=== PATIENT | female | born 1960 | race American Indian/Alaskan Native ===

== ENCOUNTER 2018-09-22 03:02 | Emergency (ER) | payer OTHER ==
[2018-09-22 03:47] LABS: Basophils % (Auto) 0.8 % (0.0-1.8); Eosinophils # (Auto) 0.1 K/mm3 (0.0-0.4); Eosinophils % (Auto) 2.5 % (0.0-4.3); Hematocrit 38.8 % (30.3-42.9); Hemoglobin 13.2 gm/dl (10.1-14.3); Lymphocytes # (Auto) 1.6 K/mm3 (1.2-5.4); Lymphocytes % (Auto) 38.8 % (13.4-35.0); Mean Corpuscular HGB Conc 34 % (30-34); Mean Corpuscular Volume 83 fl (79-97); Monocytes # (Auto) 0.4 K/mm3 (0.0-0.8); Platelet Count 219 K/mm3 (140-440); Red Blood Count 4.69 M/mm3 (3.65-5.03); Red Cell Distribution Width 14.8 % (13.2-15.2)
--- NOTE | 2018-09-22 03:52 | Emergency Department Report ---
ED General Adult HPI - General Chief complaint: High BP Stated complaint: ELEVATED BLOOD PRESSURE Time Seen by Provider: 09/22/18 03:47 Source: patient Mode of arrival: Ambulatory Limitations: No Limitations - History of Present Illness Initial comments: Patient is 57 years old female with history of hypertension on hydrochlorothiazide. Patient presented today to the emergency room stating that she took her blood pressure today and found it high, 157/99. Patient denied any symptoms. She denied any chest pain, weakness numbness or tingling sensation. Patient also denied any shortness of breath. Patient stated that her blood pressures being well-controlled with her current medication until tonight. Patient is anxious. Severity scale (0 -10): 1 - Related Data Allergies Allergy/AdvReac Type Severity Reaction Status Date / Time No Known Allergies Allergy Unverified 05/29/15 21:22 ED Review of Systems ROS: Stated complaint: ELEVATED BLOOD PRESSURE Other details as noted in HPI Comment: All other systems reviewed and negative Constitutional: denies: chills, fever Respiratory: denies: cough, orthopnea, shortness of breath Cardiovascular: denies: chest pain, palpitations Gastrointestinal: denies: abdominal pain, nausea, vomiting, diarrhea, constipation, hematemesis, melena, hematochezia Musculoskeletal: denies: back pain ED Past Medical Hx - Past Medical History Previous Medical History?: Yes Hx Hypertension: Yes - Surgical History Past Surgical History?: Yes Additional Surgical History: fibroids - Social History Smoking Status: Never Smoker Substance Use Type: None ED Physical Exam - General Limitations: No Limitations General appearance: alert, in no apparent distress - Head Head exam: Present: atraumatic, normocephalic, normal inspection - Eye Eye exam: Present: normal appearance - ENT ENT exam: Present: normal exam, normal orophraynx, mucous membranes moist - Neck Neck exam: Present: normal inspection, full ROM. Absent: tenderness, meningismus, lymphadenopathy, thyromegaly - Respiratory Respiratory exam: Present: normal lung sounds bilaterally - Cardiovascular Cardiovascular Exam: Present: regular rate, normal rhythm, normal heart sounds - GI/Abdominal GI/Abdominal exam: Present: soft, normal bowel sounds. Absent: distended, tenderness, guarding, rebound, rigid, organomegaly, mass, bruit, pulsatile mass, hernia - Extremities Exam Extremities exam: Present: normal inspection, full ROM, normal capillary refill. Absent: pedal edema, calf tenderness - Back Exam Back exam: Present: normal inspection, full ROM. Absent: tenderness, CVA tenderness (R), CVA tenderness (L), muscle spasm, paraspinal tenderness, vertebral tenderness - Neurological Exam Neurological exam: Present: alert, oriented X3, CN II-XII intact, normal gait, reflexes normal - Psychiatric Psychiatric exam: Present: normal mood, anxious - Skin Skin exam: Present: warm, intact, normal color ED Course Vital Signs 09/22/18 09/22/18 03:06 03:59 Temperature 97.9 F Pulse Rate 80 74 Respiratory 16 15 Rate Blood Pressure 154/79 Blood Pressure 148/89 [Right] O2 Sat by Pulse 98 98 Oximetry ED Medical Decision Making - Lab Data Result diagrams: 09/22/18 03:34 Critical care attestation.: If time is entered above; I have spent that time in minutes in the direct care of this critically ill patient, excluding procedure time. ED Disposition Clinical Impression: Hypertension Disposition: DC-01 TO HOME OR SELFCARE Is pt being admited?: No Condition: Stable Instructions: Hypertension (ED) Referrals: CHANDNI ESPINOSA MD [Primary Care Provider] - 3-5 Days
[2018-09-22 04:07] LABS: BUN/Creatinine Ratio 16; Blood Urea Nitrogen 13 mg/dL (7-17); Calcium 9.2 mg/dL (8.4-10.2); Hemolysis Index 25
[2018-09-22 04:26] VITALS: BP 140/79
== END 2018-09-22 04:37 | disposition home or self-care (01) ==
LOC: ED 03:02
DX: I10 Essential (primary) hypertension (principal)
CPT/HCPCS: 36415; 80048; 84484; 85025; 93005; 93010; 99283

== ENCOUNTER 2020-05-13 09:07 | Outpatient (CLI) | payer OTHER ==
--- NOTE | 2020-05-21 14:31 | Mammography Report ---
DIGITAL SCREENING MAMMOGRAM WITH CAD, 05/13/2020 INDICATION: Routine screening mammography. TECHNIQUE: Digital bilateral 2D mammography was obtained in the craniocaudal and mediolateral obliq ue projections. This examination was interpreted with the benefit of Computer-Aided Detection analysi s. COMPARISON: 10/31/2018, 04/18/2018 FINDINGS: Breast Density: There are scattered areas of fibroglandular density. There is no evidence of dominant mass, suspicious calcifications or architectural distortion in eithe r breast. There have been no significant interval changes. IMPRESSION: No mammographic evidence of malignancy or significant interval changes. Follow up recommendation: Routine yearly BI-RADS Category 1: Negative. A "normal" or negative report should not discourage follow up or biopsy of a clinically significant f inding. A written summary of these findings will be mailed to the patient. The patient will be entered into a mammography reporting system which will generate a reminder letter for the patient's next appointmen t at the appropriate interval. The [employer] recommends yearly mammograms starting at age 40 and continuing as l issa as a woman is in good health. Breast MRI is recommended for women with an approximate 20-25% or greater lifetime risk of breast cancer, including women with a strong family history of breast or ova juanito cancer or who have been treated for Hodgkin's disease. Signer Name: Edgard Rojas MD Signed: 05/21/2020 2:26 PM Workstation Name: [id number]
== END 2020-05-13 09:08 | disposition home or self-care (01) ==
LOC: MAMMO 09:07
PROVIDERS: ATTEND Family Medicine
DX: Z12.31 Encounter for screening mammogram for malignant neoplasm of breast (principal)
CPT/HCPCS: 77067

== ENCOUNTER 2020-08-15 21:15 | Emergency (ER) | payer SELFPAY ==
--- NOTE | 2020-08-15 23:44 | Emergency Department Report ---
ED General Adult HPI - General Chief complaint: High BP Stated complaint: HIGH BP Source: patient Mode of arrival: Ambulatory Limitations: No Limitations - History of Present Illness Initial comments: Patient is a 59-year-old -[place]ag[place] female with a history of hypertension who presents to the ED for evaluation after she noticed that her blood pressure was significantly elevated in the last 2 days despite taking her blood pressure medication Triamterene consistently over the last 2 years. Patient states that she usually checks her blood pressure at home and in the last 2 days, the systolic blood pressure has been in the 160s to 170s when checked at home, and prior to arrival in the ED it was also in the 160s systolic. Patient states that in the last 3 hours, the systolic blood pressure has been ranging from 160s to 170s and back to 150s. Patient denies headache, chest pain, shortness of breath, abdominal pain, diaphoresis, neck pain, change in vision, palpitations, syncope, numbness and tingling or weakness of upper and lower extremities bilaterally, nausea and vomiting, diarrhea, cough or fever and chills. MD Complaint: Elevated BP -: Sudden, days(s) (2) Location: head Severity scale (0 -10): 0 Consistency: intermittent Improves with: none Worsens with: none Associated Symptoms: denies other symptoms. denies: confusion, chest pain, cough, diaphoresis, fever/chills, headaches, loss of appetite, malaise, nausea/vomiting, rash, shortness of breath, syncope, weakness Treatments Prior to Arrival: none - Related Data Previous Rx's Medication Instructions Recorded Last Taken Type amLODIPine 5 mg PO DAILY #30 tab 08/15/20 Unknown Rx hydrOXYzine PAMOATE [Vistaril] 25 mg PO QHS PRN #30 capsule 08/15/20 Unknown Rx Allergies Allergy/AdvReac Type Severity Reaction Status Date / Time No Known Allergies Allergy Unverified 05/29/15 21:22 ED Review of Systems ROS: Stated complaint: HIGH BP Other details as noted in HPI Constitutional: denies: chills, fever Eyes: denies: eye pain, eye discharge, vision change ENT: denies: ear pain, throat pain Respiratory: denies: cough, shortness of breath, wheezing Cardiovascular: denies: chest pain, palpitations Endocrine: no symptoms reported Gastrointestinal: denies: abdominal pain, nausea, diarrhea Genitourinary: denies: urgency, dysuria, discharge Musculoskeletal: denies: back pain, joint swelling, arthralgia Skin: denies: rash, lesions Neurological: denies: headache, weakness, paresthesias Psychiatric: denies: anxiety, depression Hematological/Lymphatic: denies: easy bleeding, easy bruising ED Past Medical Hx - Past Medical History Previous Medical History?: Yes Hx Hypertension: Yes - Surgical History Past Surgical History?: Yes Additional Surgical History: fibroids - Social History Smoking Status: Never Smoker Substance Use Type: None - Medications Home Medications: Home Medications Medication Instructions Recorded Confirmed Last Taken Type amLODIPine 5 mg PO DAILY #30 tab 08/15/20 Unknown Rx hydrOXYzine PAMOATE [Vistaril] 25 mg PO QHS PRN #30 capsule 08/15/20 Unknown Rx ED Physical Exam - General Limitations: No Limitations General appearance: alert, in no apparent distress - Head Head exam: Present: atraumatic, normocephalic, normal inspection - Eye Eye exam: Present: normal appearance, PERRL, EOMI Pupils: Present: normal accommodation - ENT ENT exam: Present: normal exam, normal orophraynx, mucous membranes moist, TM's normal bilaterally, normal external ear exam - Neck Neck exam: Present: normal inspection - Respiratory Respiratory exam: Present: normal lung sounds bilaterally. Absent: respiratory distress, wheezes, rales, rhonchi, stridor, chest wall tenderness, accessory muscle use, decreased breath sounds, prolonged expiratory - Cardiovascular Cardiovascular Exam: Present: regular rate, normal rhythm, normal heart sounds. Absent: systolic murmur, diastolic murmur, rubs, gallop - GI/Abdominal GI/Abdominal exam: Present: soft, normal bowel sounds. Absent: tenderness, guarding, hyperactive bowel sounds, hypoactive bowel sounds, organomegaly, mass - Extremities Exam Extremities exam: Present: normal inspection, full ROM, normal capillary refill - Back Exam Back exam: Present: normal inspection, full ROM. Absent: tenderness, CVA tenderness (R), CVA tenderness (L), muscle spasm, paraspinal tenderness, vertebral tenderness - Neurological Exam Neurological exam: Present: alert, oriented X3, CN II-XII intact, normal gait, reflexes normal - Psychiatric Psychiatric exam: Present: normal affect, normal mood - Skin Skin exam: Present: warm, dry, intact, normal color. Absent: rash ED Course Vital Signs 08/15/20 08/16/20 23:06 00:45 Temperature 98.6 F Pulse Rate 74 78 Respiratory 18 Rate Blood Pressure 166/62 Blood Pressure 152/84 [Left] O2 Sat by Pulse 100 Oximetry ED Medical Decision Making - Medical Decision Making This is a 59-year-old -[place]ag[place] female with a history of hypertension who presents to the ED for evaluation after she noticed that her blood pressure was significantly elevated in the last 2 days despite taking her blood pressure medication Triamterene consistently over the last 2 years. Patient states that she usually checks her blood pressure at home and in the last 2 days, the systolic blood pressure has been in the 160s to 170s when checked at home, and prior to arrival in the ED it was also in the 160s systolic. Patient states that in the last 3 hours, the systolic blood pressure has been ranging from 160s to 170s and back to 150s. In the ED, patient is alert and oriented x3 and is not in distress with initial blood pressure in triage reading 166/62, and with normal temperature and pulse, and oxygen saturation of 100% in room air. Laine perkins appears to be not acute distress but anxious in triage. On reevaluation, patient's blood pressure reading was 152/84 with a pulse rate of 78 bpm and oxygen saturation of 100% in room air. Patient was discharged home with additional prescription of amlodipine 5 mg to be taken daily in addition to triamterene that she has been taking. Patient was advised to follow-up with her primary care physician in 3 to 5 days for reevaluation and also advised return to the ED immediately if her symptoms get worse. - Differential Diagnosis Uncontrolled HTN; Anxiety Critical care attestation.: If time is entered above; I have spent that time in minutes in the direct care of this critically ill patient, excluding procedure time. ED Disposition Clinical Impression: Uncontrolled stage 2 hypertension, Anxiety as acute reaction to exceptional stress Disposition: DC-01 TO HOME OR SELFCARE Is pt being admited?: No Does the pt Need Aspirin: No Condition: Stable Instructions: Generalized Anxiety Disorder, Adult, Hypertension, Adult, [id number], Hypertension (ED) Additional Instructions: Take medication together with the other blood pressure medications, and follow up with your Primary Care Physician in 7-10 days for reevaluation. Return to the ED immediately if symptoms get worse Prescriptions: hydrOXYzine PAMOATE [Vistaril] 25 mg PO QHS PRN #30 capsule PRN Reason: Anxiety amLODIPine 5 mg PO DAILY #30 tab Referrals: MAX CORDOVA MD [Staff Physician] - 7-10 days Time of Disposition: 23:42 Print Language: MALIAN
[2020-08-16 00:46] VITALS: BP 152/84
== END 2020-08-16 00:46 | disposition home or self-care (01) ==
LOC: ED 21:15
DX: I10 Essential (primary) hypertension (principal); F41.9 Anxiety disorder, unspecified; F43.9 Reaction to severe stress, unspecified; Z79.899 Other long term (current) drug therapy
CPT/HCPCS: 99282

== ENCOUNTER 2021-05-19 10:39 | Outpatient (CLI) | payer OTHER ==
--- NOTE | 2021-05-20 17:04 | Mammography Report ---
DIGITAL SCREENING MAMMOGRAM WITH CAD, 05/19/2021 CLINICAL INFORMATION / INDICATION: Routine screening mammography. TECHNIQUE: Digital bilateral 2D mammography was obtained in the craniocaudal and mediolateral obliqu e projections. This examination was interpreted with the benefit of Computer-Aided Detection analysis . COMPARISON: 05/13/2020, 10/31/2018, 04/18/2018 FINDINGS: Breast Density: There are scattered areas of fibroglandular density. No dominant mass, suspicious calcifications, or architectural distortion in either breast. IMPRESSION: No mammographic evidence of malignancy. Follow up recommendation: Routine yearly BI-RADS Category 1: Negative. A "normal" or negative report should not discourage follow up or biopsy of a clinically significant f inding. A written summary of these findings will be mailed to the patient. The patient will be entered into a mammography reporting system which will generate a reminder letter for the patient's next appointmen t at the appropriate interval. The [employer] recommends yearly mammograms starting at age 40 and continuing as l issa as a woman is in good health. Breast MRI is recommended for women with an approximate 20-25% or greater lifetime risk of breast cancer, including women with a strong family history of breast or ova juanito cancer or who have been treated for Hodgkin's disease. Signer Name: Halie Patten MD Signed: 05/20/2021 5:00 PM Workstation Name: [id number]
== END 2021-05-19 10:40 | disposition home or self-care (01) ==
LOC: MAMMO 10:39
DX: Z12.31 Encounter for screening mammogram for malignant neoplasm of breast (principal)
CPT/HCPCS: 77067